=== PATIENT | female | born 1990 | race African-American/Black ===

== ENCOUNTER 2016-09-09 13:37 | Emergency (ER) | payer OTHER | END 2016-09-09 13:41 | disposition home or self-care (01) | LOC: CFTX 13:37 | DX: J06.9 Acute upper respiratory infection, unspecified (principal); Z88.0 Allergy status to penicillin; Z91.010 Allergy to peanuts | CPT/HCPCS: 99282 ==

== ENCOUNTER 2016-10-01 15:11 | Emergency (ER) | payer OTHER | END 2016-10-01 15:15 | disposition home or self-care (01) | LOC: CED 15:11 | DX: J06.9 Acute upper respiratory infection, unspecified (principal); G43.909 Migraine, unspecified, not intractable, without status migrainosus; F17.210 Nicotine dependence, cigarettes, uncomplicated; Z88.0 Allergy status to penicillin | CPT/HCPCS: 99282 ==

== ENCOUNTER 2016-10-27 10:45 | Emergency (ER) | payer OTHER ==
[2016-10-27 10:37] LABS: URINE SOURCE CLEAN CATCH
[2016-10-27 10:44] LABS: URINE APPEARANCE CLEAR; URINE BILIRUBIN NEG (NEG); URINE BLOOD NEG (NEG); URINE COLOR YELLOW; URINE GLUCOSE NEG (NEG); URINE KETONE NEG (NEG); URINE LEUKOCYTE ESTERASE 2+ (NEG); URINE NITRATE POS (NEG); URINE PH 5.5 (5-8); URINE PROTEIN NEG (NEG); URINE SPECIFIC GRAVITY 1.021 (1.003-1.035); URINE UROBILINOGEN 0.2 MG/DL (NEG)
[2016-10-27 10:47] LABS: CULTURE INDICATED? YES; URINE BACTERIA AUWI 4+ (NEGATIVE); URINE SQUAMOUS EPITHELIAL CELL OCC /[HPF]
[2016-10-29 14:22] LABS: CHLAMYDIA TRACH Not Detected (Not Detected); N GONOR Not Detected (Not Detected)
== END 2016-10-27 11:35 | disposition home or self-care (01) ==
LOC: CFTX 10:45
PROVIDERS: Emergency Medicine; Nurse Practitioner
DX: N76.0 Acute vaginitis (principal); N30.00 Acute cystitis without hematuria; F17.210 Nicotine dependence, cigarettes, uncomplicated; Z88.0 Allergy status to penicillin; Z91.010 Allergy to peanuts
CPT/HCPCS: 81003; 84703; 87086; 87088; 87186; 87491; 87591; 87808; 87905; 96372; 99284; J0696

== ENCOUNTER 2016-11-05 20:27 | Emergency (ER) | payer OTHER | END 2016-11-05 21:08 | disposition home or self-care (01) | LOC: CFTX 20:27 | DX: N94.4 Primary dysmenorrhea (principal); Z88.0 Allergy status to penicillin; F17.210 Nicotine dependence, cigarettes, uncomplicated | CPT/HCPCS: 99283 ==

== ENCOUNTER 2016-11-16 12:04 | Emergency (ER) | payer OTHER | END 2016-11-16 12:45 | disposition home or self-care (01) | LOC: CED 12:04 → CFTX 12:04 | DX: H10.31 Unspecified acute conjunctivitis, right eye (principal); F17.210 Nicotine dependence, cigarettes, uncomplicated | CPT/HCPCS: 99282 ==

== ENCOUNTER 2016-12-03 09:39 | Emergency (ER) | payer OTHER | END 2016-12-03 10:29 | disposition home or self-care (01) | LOC: CED 09:39 → CFTX 09:39 | DX: J06.9 Acute upper respiratory infection, unspecified (principal); G43.909 Migraine, unspecified, not intractable, without status migrainosus; F17.200 Nicotine dependence, unspecified, uncomplicated; Z88.0 Allergy status to penicillin; Z91.010 Allergy to peanuts | CPT/HCPCS: 99282 ==

== ENCOUNTER 2016-12-07 05:56 | Emergency (ER) | payer OTHER | END 2016-12-07 08:25 | disposition home or self-care (01) | LOC: CED 05:56 | DX: N94.6 Dysmenorrhea, unspecified (principal); G43.909 Migraine, unspecified, not intractable, without status migrainosus; F17.210 Nicotine dependence, cigarettes, uncomplicated; Z91.010 Allergy to peanuts; Z88.0 Allergy status to penicillin | CPT/HCPCS: 99282 ==

== ENCOUNTER 2016-12-30 14:31 | Emergency (ER) | payer OTHER | END 2016-12-30 15:30 | disposition home or self-care (01) | LOC: CFTX 14:31 → CED 14:31 → CFTX 14:49 | DX: J06.9 Acute upper respiratory infection, unspecified (principal); G43.909 Migraine, unspecified, not intractable, without status migrainosus; F17.200 Nicotine dependence, unspecified, uncomplicated; Z88.0 Allergy status to penicillin; Z91.018 Allergy to other foods | CPT/HCPCS: 87651; 99283; C9113; J2405 ==

== ENCOUNTER 2017-01-04 16:08 | Emergency (ER) | payer OTHER | END 2017-01-04 17:05 | disposition home or self-care (01) | LOC: CED 16:08 → CFTX 16:08 → CED 16:49 → CFTX 17:05 | DX: S16.1XXA Strain of muscle, fascia and tendon at neck level, initial encounter (principal); F17.210 Nicotine dependence, cigarettes, uncomplicated; Z88.0 Allergy status to penicillin; Z91.010 Allergy to peanuts; X58.XXXA Exposure to other specified factors, initial encounter | CPT/HCPCS: 99283 ==

== ENCOUNTER 2017-01-14 17:01 | Emergency (ER) | payer OTHER | END 2017-01-14 17:29 | disposition left against medical advice (07) | LOC: CED 17:01 | DX: Z53.21 Procedure and treatment not carried out due to patient leaving prior to being seen by health care provider (principal) ==

== ENCOUNTER 2017-01-21 07:26 | Emergency (ER) | payer OTHER ==
[~2017-01-21] VITALS: Ht 162.6 cm; Wt 64.4 kg
== END 2017-01-21 08:00 | disposition home or self-care (01) ==
LOC: CED 07:26
DX: L29.9 Pruritus, unspecified (principal); G43.909 Migraine, unspecified, not intractable, without status migrainosus; Z88.0 Allergy status to penicillin; Z91.010 Allergy to peanuts; F17.210 Nicotine dependence, cigarettes, uncomplicated
CPT/HCPCS: 99283

== ENCOUNTER 2017-02-05 17:33 | Emergency (ER) | payer OTHER ==
[~2017-02-05] VITALS: Ht 162.6 cm; Wt 64.4 kg
== END 2017-02-05 19:00 | disposition left against medical advice (07) ==
LOC: CED 17:33
DX: Z53.21 Procedure and treatment not carried out due to patient leaving prior to being seen by health care provider (principal)